=== PATIENT | male | born 2005 | race Hispanic/Latino ===

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

== ENCOUNTER 2025-03-19 11:03 | Outpatient (CLI) | payer BC | END 2025-03-19 11:04 | disposition home or self-care (01) | LOC: CSHRAD 11:03 | PROVIDERS: ATTEND Family Medicine | DX: R07.89 Other chest pain (principal) | CPT/HCPCS: 71046 ==